=== PATIENT | male | born 1995 | race Caucasian/White ===

== ENCOUNTER 2016-05-25 01:12 | Emergency (ER) | payer OTHER ==
[2016-05-25 01:23] VITALS: BP 149/97; PULSE 85; TEMP 98.1; BMI 23.7
== END 2016-05-25 02:44 | disposition left against medical advice (07) ==
LOC: JER 01:12
DX: Z53.21 Procedure and treatment not carried out due to patient leaving prior to being seen by health care provider (principal)
CPT/HCPCS: 99281-25

== ENCOUNTER 2018-06-07 19:44 | Emergency (ER) | payer OTHER ==
[2018-06-07 19:56] VITALS: BP 133/92; PULSE 91; TEMP 98; BMI 23.0
--- NOTE | 2018-06-07 19:57 | PDOC ---
Rapid Medical Evaluation Chief Complaint: Bite Time Seen by Provider: 06/07/18 19:52 Medical Evaluation: Allergies Allergy/AdvReac Type Severity Reaction Status Date / Time shellfish derived Allergy Itching Verified 06/07/18 19:51 06/07/18 19:54 23 year old male s/p dog bite this morning to the right 4th digit. unsure of vaccination history of dog. this is a friends dog. tetanus up to date + bite to right distal end of 4th digit A: dog bite P; patient to the ER for further management of care. Discharge Disposition - Diagnosis Dog bite Qualifiers: Encounter type: initial encounter Qualified Code(s): W54.0XXA - Bitten by dog, initial encounter - Referrals - Patient Instructions - Post Discharge Activity
--- NOTE | 2018-06-07 21:04 | PDOC ---
History of Present Illness - General Chief Complaint: Bite Stated Complaint: DOG BITE Time Seen by Provider: 06/07/18 19:52 History Source: Patient Exam Limitations: No Limitations - History of Present Illness Initial Comments: 06/07/18 20:57 HISTORY OF PRESENT ILLNESS: 23-year-old male denies medical history presents emergency department for evaluation of dog bite to his right fourth finger. Patient reports this is his coworkers dog and he has access to the dog. 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 Patient is up -to-date with his tetanus immunizations. No recent travel or sick contacts. PAST MEDICAL HISTORY: Denies past medical history SURGICAL HISTORY: Denies ALLERGIES: No known drug allergies REVIEW OF SYSTEMS General/Constitutional: Denies fever or chills. Denies weakness, weight change. HEENT: Denies change in vision. Denies ear pain or discharge. Denies sore throat. Cardiovascular: Denies chest pain or shortness of breath. Respiratory: Denies cough, wheezing, or hemoptysis. Gastrointestinal: Denies nausea, vomiting, diarrhea or constipation. Denies rectal bleeding. Genitourinary: Denies dysuria, frequency, or change in urination. Musculoskeletal: Denies joint or muscle swelling or pain. Denies neck or back pain. Skin and breasts: see HPI Neurologic: Denies headache, vertigo, loss of consciousness, or loss of sensation. Psychiatric: Denies depression or anxiety. Endocrine: Denies increased thirst. Denies abnormal weight change. Hematologic/Lymphatic: Denies anemia, easy bleeding, or history of blood clots. Allergic/Immunologic: Denies hives or skin allergy. Denies latex allergy. PHYSICAL EXAM General Appearance: Well-appearing, appropriately dressed. No apparent distress , no intoxication. Musculoskeletal/Extremities: Normal inspection. FROM of all extremities, normal capillary refill. Pelvis Stable. No CVA tenderness. No tenderness to extremities, pedal edema, swelling, erythema or deformity. Integumentary: 1.5 cm jagged superficial laceration present to the volar aspect of the distal phalanx of the right fourth finger. NVI Neurologic: rubbish collection supervisor II-XII intact. Fully oriented, alert. Appropriate mood/affect. Motor strength 5/5. No appreciable EOM palsy, facial droop or sensory deficit. 06/07/18 21:22 Past History - Past Medical History Allergies/Adverse Reactions: Allergies Allergy/AdvReac Type Severity Reaction Status Date / Time shellfish derived Allergy Itching Verified 06/07/18 19:58 Home Medications: Ambulatory Orders Amox-Tr/K Cl [Augmentin - 875Mg Tablet] 1 tab PO BID #14 tablet 06/07/18 Anemia: No Asthma: Yes (childhood) Cancer: No Cardiac Disorders: No CVA: No COPD: No CHF: No Dementia: No Diabetes: No GI Disorders: No Disorders: No HTN: No Hypercholesterolemia: No Liver Disease: No Seizures: No Thyroid Disease: No - Surgical History Abdominal Surgery: No Appendectomy: No Cardiac Surgery: No Cholecystectomy: No Lung Surgery: No Neurologic Surgery: No Orthopedic Surgery: Yes (club foot) - Immunization History Immunization Up to Date: Yes - Suicide/Smoking/Psychosocial Hx Smoking History: Never smoked Have you smoked in the past 12 months: No Number of Cigarettes Smoked Daily: 10 Information on smoking cessation initiated: No 'Breaking Loose' booklet given: 06/21/14 Hx Alcohol Use: No Drug/Substance Use Hx: No Substance Use Type: None Hx Substance Use Treatment: No *Physical Exam - Vital Signs Last Vital Signs Temp Pulse Resp BP Pulse Ox 98 F 91 H 16 133/92 100 06/07/18 19:51 06/07/18 19:51 06/07/18 19:51 06/07/18 19:51 06/07/18 19:51 Medical Decision Making - Medical Decision Making 06/07/18 21:04 A/P: 23-year-old male with dog bite to fourth finger of his right hand 1.5 cm superficial jagged laceration present to the volar aspect over the distal phalanx of the fourth finger of the right hand Neurovascular intact Bleeding is well-controlled Irrigated copiously steri strips X-rays as read by me: No acute fractures or dislocations present. As patient is able to have contact with the dog and the dog is able to be watched for signs and symptoms of rabies I will defer rabies treatment at this time. I will discharge the patient home with prescription for Augmentin and to follow- up with his primary doctor. 06/07/18 21:23 06/07/18 21:23 *DC/Admit/Observation/Transfer Diagnosis at time of Disposition: Dog bite Qualifiers: Encounter type: initial encounter Qualified Code(s): W54.0XXA - Bitten by dog, initial encounter - Discharge Dispostion Disposition: HOME Condition at time of disposition: Stable Decision to Admit order: No - Prescriptions Prescriptions: Amox-Tr/K Cl [Augmentin - 875Mg Tablet] 1 tab PO BID #14 tablet - Referrals Referrals: Agus Balderrama MD [Primary Care Provider] - Antonio Kemp MD [Staff Physician] - - Patient Instructions Printed Discharge Instructions: DI for Animal Bites Additional Instructions: Take Augmentin 1 tablet twice a day for the next 7 days. Finish all antibiotics. Return to emergency department for redness, swelling, discharge or drainage from the wound over any new or worsening symptoms. Thank you very much for treasonous provider emergent health care needs. - Post Discharge Activity Forms/Work/School Notes: Back to Work
[2018-06-07] MEDS ORDERED: AMOX TR/POT CLAV 875MG/125MG TABLETS (FP) PO ONE (21:09)
[2018-06-07] MEDS ORDERED: AMOX TR/POT CLAV 875MG/125MG TABLETS (FP) ONE (21:13)
== END 2018-06-07 21:52 | disposition home or self-care (01) ==
LOC: JERFT 19:44
DX: S61.254A Open bite of right ring finger without damage to nail, initial encounter (principal); W54.0XXA Bitten by dog, initial encounter; Y93.89 Activity, other specified; Y92.89 Other specified places as the place of occurrence of the external cause; Y99.8 Other external cause status
CPT/HCPCS: 73140-TC-RT-FY; 99281-25

== ENCOUNTER 2020-06-11 19:18 | Emergency (ER) | payer OTHER ==
[2020-06-11 19:43] VITALS: BP 140/98; PULSE 91; TEMP 98.3; BMI 23.9
[2020-06-11] MEDS ORDERED: KETOROLAC TROMETHAMINE 60 MG/2 ML VIAL IM ONE (20:19)
[2020-06-11] MEDS ORDERED: CYCLOBENZAPRINE HCL 10 MG TABLET (FP) PO ONE (20:19)
[2020-06-11] MEDS ORDERED: KETOROLAC TROMETHAMINE 60 MG/2 ML VIAL ONE (20:23)
[2020-06-11] MEDS ORDERED: CYCLOBENZAPRINE HCL 10 MG TABLET (FP) ONE (20:23)
== END 2020-06-11 20:40 | disposition home or self-care (01) ==
LOC: JERFT 19:18 → JER 19:18 → JERFT 20:40
PROC: 3E0233Z Introduction of Anti-inflammatory into Muscle, Percutaneous Approach (ICD-10-PCS; principal; 2020-06-11)
DX: S16.1XXA Strain of muscle, fascia and tendon at neck level, initial encounter (principal)
CPT/HCPCS: 99284-25

== ENCOUNTER 2022-07-21 02:20 | Emergency (ER) | payer OTHER ==
[2022-07-21 02:31] VITALS: RESP 20; BMI 31.8
[2022-07-21] MEDS ORDERED: ACETAMINOPHEN 1000 MG/100 ML BAG IVPB ONE (02:35)
[2022-07-21] MEDS ORDERED: DIPHTH,PERTUSS(ACELL),TET 0.5 ML DISP.SYRIN IM ONE ×2 (02:35→02:46)
[2022-07-21] MEDS ORDERED: SODIUM CHLORIDE 1,000 ML IV STA (02:42)
[2022-07-21] MEDS ORDERED: ACETAMINOPHEN INJECTION 100 ML IVPB ONE (02:46)
[2022-07-21 03:17] LABS: BASO % 0.4 % (0-2.0); EOS % 4.7 % (0-4.5); HEMATOCRIT 47.8 % (35.4-49); HEMOGLOBIN 15.5 GM/dL (11.7-16.9); MCH 27.7 pg (25.7-33.7); MCHC 32.4 g/dl (32.0-35.9); MEAN CELL VOLUME 85.4 fl (80-96); MEAN PLT VOLUME 8.9 fl (7.5-11.1); MONO % 8.3 % (3.8-10.2); NEUT % 57.6 % (42.8-82.8); PLATELET COUNT 313 10^3/uL (134-434); RDW 14.2 % (11.9-15.9)
[2022-07-21 03:24] LABS: INR 1.05 (0.83-1.09); PROTHROMBIN TIME (PATIENT) 12.2 SEC (9.7-13.0)
[2022-07-21 03:26] LABS: ACTIVATED PTT 28.1 SECONDS (25.2-36.5)
[2022-07-21 03:37] LABS: POTASSIUM 3.5 mmol/L (3.5-5.1)
[2022-07-21 03:41] LABS: ALBUMIN 4.1 g/dl (3.4-5.0); BLOOD UREA NITROGEN 10.2 mg/dL (7-18)
[2022-07-21 03:46] LABS: BILIRUBIN,TOTAL 0.7 mg/dL (0.2-1); TOT PROT 7.6 g/dl (6.4-8.2)
[2022-07-21 05:04] VITALS: BP 141/101; PULSE 100; TEMP 97.5
== END 2022-07-21 05:32 | disposition short-term general hospital (02) ==
LOC: JER 02:20
PROC: 3E033NZ Introduction of Analgesics, Hypnotics, Sedatives into Peripheral Vein, Percutaneous Approach (ICD-10-PCS; principal; 2022-07-21)
PROC: 3E0337Z Introduction of Electrolytic and Water Balance Substance into Peripheral Vein, Percutaneous Approach (ICD-10-PCS; 2022-07-21)
PROC: 0HQ8XZZ Repair Buttock Skin, External Approach (ICD-10-PCS; 2022-07-21)
PROC: 3E0234Z Introduction of Serum, Toxoid and Vaccine into Muscle, Percutaneous Approach (ICD-10-PCS; 2022-07-21)
DX: S31.813A Puncture wound without foreign body of right buttock, initial encounter (principal); S40.212A Abrasion of left shoulder, initial encounter; S40.211A Abrasion of right shoulder, initial encounter; W22.8XXA Striking against or struck by other objects, initial encounter; Y93.39 Activity, other involving climbing, rappelling and jumping off; Y92.9 Unspecified place or not applicable; Z20.822 Contact with and (suspected) exposure to COVID-19
CPT/HCPCS: 12001-25; 36415; 72193-TC; 80053; 85025; 85610; 85730; 86850; 86900; 86901; 87635; 90471; 90715; 96361; 96374; 99285-25